=== PATIENT | female | born 1980 | race Caucasian/White ===

== ENCOUNTER 2022-11-25 13:21 | Day surgery (SDC) | payer OTHER ==
[~2022-11-25] VITALS: Ht 162.6 cm; Wt 82.4 kg
[~2022-11-25 13:21] MED LIST: ACET325 PO; CIPR500 PO; HYDACE5 PO; IBUP800 PO; METO50ER PO; MULVITMINE; NAPR500 PO; Norco 5-325 Ta1 EACH PO; PENVK500 PO; RXPENVK250 PO
[2022-11-25] MEDS ORDERED: OMEP20ER (13:46)
[2022-11-25] MEDS ORDERED: Adipex-P37.5 M1 (13:46)
[2022-11-25 14:58] VITALS: BP 111/73
== END 2022-11-25 14:59 | disposition home or self-care (01) ==
LOC: ORSCSDS 13:21
PROVIDERS: Internal Medicine Gastroenterology
PROC: 0DB68ZX Excision of Stomach, Via Natural or Artificial Opening Endoscopic, Diagnostic (ICD-10-PCS; principal; 2022-11-25 14:30)
PROC: 0DBE8ZX Excision of Large Intestine, Via Natural or Artificial Opening Endoscopic, Diagnostic (ICD-10-PCS; principal; 2022-11-25 14:30)
PROC: 0DB98ZX Excision of Duodenum, Via Natural or Artificial Opening Endoscopic, Diagnostic (ICD-10-PCS; principal; 2022-11-25 14:30)
DX: K62.5 Hemorrhage of anus and rectum (principal); R10.13 Epigastric pain; K21.9 Gastro-esophageal reflux disease without esophagitis; K57.30 Diverticulosis of large intestine without perforation or abscess without bleeding; Z87.891 Personal history of nicotine dependence; K64.8 Other hemorrhoids; K29.60 Other gastritis without bleeding; R19.4 Change in bowel habit; D50.9 Iron deficiency anemia, unspecified; E11.9 Type 2 diabetes mellitus without complications; Z79.899 Other long term (current) drug therapy
CPT/HCPCS: 82947; 88305; 88342; J2704; J7120

== ENCOUNTER → 2022-12-21 | Outpatient (CLI) | payer OTHER ==
[~2022-12-21] MED LIST changes: +Adipex-P37.5 M1; +OMEP20ER
[2022-12-21 14:14] LABS: Campylobacter Sp Not Detected (NOT DETECT); Enteroaggregative E. coli-EAEC Not Detected (NOT DETECT); Plesiomonas Shigelloides Not Detected (NOT DETECT); Salmonella Sp Not Detected (NOT DETECT); Vibrio Cholerae Not Detected (NOT DETECT); Vibrio Sp Not Detected (NOT DETECT); Yersinia Enterocolitica Not Detected (NOT DETECT)
[2022-12-21 14:15] LABS: Adenovirus F 40/41 Not Detected (NOT DETECT); Astrovirus Not Detected (NOT DETECT); Cryptosporidium Not Detected (NOT DETECT); Cyclospora Cayetanensis Not Detected (NOT DETECT); E. Coli O157 Not Detected (NOT DETECT); Entamoeba Histolytica Not Detected (NOT DETECT); Enteropathogenic E. coli-EPEC Not Detected (NOT DETECT); Enterotoxigenic E. coli-ETEC Not Detected (NOT DETECT); Giardia Lamblia Not Detected (NOT DETECT); Norovirus GI/GII Not Detected (NOT DETECT); Rotavirus A Not Detected (NOT DETECT); Sapovirus Not Detected (NOT DETECT); Shiga Toxin-prod E. coli-STEC Not Detected (NOT DETECT); Shigella/Enteroin E. coli-EIEC Not Detected (NOT DETECT)
== END | disposition home or self-care (01) ==
LOC: LAB SHORT 05:00 → LAB 05:00
PROVIDERS: Physician Assistant Medical
DX: K92.1 Melena (principal); R10.13 Epigastric pain; R19.7 Diarrhea, unspecified
CPT/HCPCS: 87338; 87507

== ENCOUNTER 2023-09-29 08:40 | Day surgery (SDC) | payer OTHER ==
[~2023-09-29] VITALS: Ht 162.6 cm; Wt 84.8 kg
[~2023-09-29 08:40] MED LIST changes: +DECARA1250 MC1 PO; +FOLI1 PO
[2023-09-29] MEDS ORDERED: IBUP200 (09:03)
[2023-09-29] MEDS ORDERED: CeFAZolin Sodium 2,000 MG VIAL ONE (09:11)
[2023-09-29] MEDS ORDERED: NS 50 ML IV ONE (09:11)
[2023-09-29] MEDS ORDERED: Lactated Ringer's 1,000 ML IV ONE ×4 (09:11→10:25)
--- NOTE | 2023-09-29 09:18 | NUR ---
09/29/23 0918 Kacey Lindquist MOM AWILDA AND MY AT BEDSIDE. PT COMFORTABLE IN BED. NO QUESTIONS OR CONCERNS AT THIS TIME.
[2023-09-29] MEDS ORDERED: Lidocaine 2%-Epineph 1:200000 20 ML SDV ONE (09:23)
[2023-09-29] MEDS ORDERED: Midazolam HCl 1MG / ML 2ML Vial ONE (09:36)
[2023-09-29] MEDS ORDERED: Midazolam HCL 1 MG/ML 5MLVIAL ONE (09:36)
[2023-09-29] MEDS ORDERED: propofoL 20 ML IV ONE (09:37)
[2023-09-29] MEDS ORDERED: FentaNYL Citrate 50 MCG/ML 2 ML Injection ONE (09:37)
[2023-09-29] MEDS ORDERED: EPINEPhrine HCl 1 MG/ML 1ML Amp XX ONE ×2 (09:59)
[2023-09-29 10:51] VITALS: BP 106/74
[2023-09-29] MEDS ORDERED: OxyCODONE HCL 5 MG TAB ONE (11:05)
== END 2023-09-29 12:00 | disposition home or self-care (01) ==
LOC: ORSCSDS 08:40
PROVIDERS: Orthopaedic Surgery
PROC: 0SBC4ZZ Excision of Right Knee Joint, Percutaneous Endoscopic Approach (ICD-10-PCS; principal; 2023-09-29 10:00)
DX: S83.261A Peripheral tear of lateral meniscus, current injury, right knee, initial encounter (principal); M24.461 Recurrent dislocation, right knee; M22.41 Chondromalacia patellae, right knee; K21.9 Gastro-esophageal reflux disease without esophagitis; Z79.899 Other long term (current) drug therapy
CPT/HCPCS: 82947; A9270; J0171; J0690; J2250; J2704; J3010; J7120